=== PATIENT | female | born 1975 | race African-American/Black ===

== ENCOUNTER 2019-12-18 22:20 | Emergency (ER) | payer MEDICAID ==
[~2019-12-18] VITALS: Ht 170.2 cm; Wt 108.0 kg
[2019-12-18 23:25] LABS: Hemoglobin 11.1 g/dL (12.2-16.2); Nucleated Red Blood Cells % 0.2 %
[2019-12-18 23:27] LABS: Basophils # (auto) 0.1 10 ^3/uL (0-0.2); Basophils % (auto) 1.5 % (0.0-2.0); Eosinophils # (auto) 0.3 10 ^3/uL (0-0.8); Eosinophils % (auto) 4.2 % (0.0-7.0); Hematocrit 34.6 % (36.0-46.0); Lymphocytes # (auto) 3.2 10 ^3/uL (0.4-5.4); Lymphocytes % (auto) 41.2 % (10.0-50.0); Mean Corpuscular Hemoglobin 25.4 pg (28.0-32.0); Mean Corpuscular Hgb Conc. 32.2 g/dL (32.0-36.0); Mean Corpuscular Volume 79.1 fL (80.0-100.0); Monocytes # (auto) 0.6 10 ^3/uL (0-1.3); Monocytes % (auto) 7.9 % (0.0-12.0); Neutrophils # (auto) 3.5 10 ^3/uL (1.6-8.6); Neutrophils % (auto) 45.2 % (37.0-80.0); Platelet Count (auto) 342 10^3/uL (140-450); Red Blood Cells 4.37 10^6/uL (4.0-5.20); Red Cell Distribution Width 19.2 % (11.8-14.3); White Blood Cell 7.7 10^3/uL (4.4-10.8)
[2019-12-18 23:37] LABS: INR 0.95 (0.9-1.15); Partial Thromboplastin Time 22.6 sec (23.0-31.2)
[2019-12-18 23:42] LABS: Albumin 3.6 g/dL (3.4-5.0); Anion Gap 6 (5-15); BUN/Creatinine Ratio 9.1; Blood Urea Nitrogen 8 mg/dL (7-18); Calcium 8.5 mg/dL (8.5-10.1); Carbon Dioxide 27 mmol/L (21-32); Chloride 105 mmol/L (98-107); GFR African American 89 mL/min; GFR Non-African American 74 mL/min; Glucose 100 mg/dL (74-106); Potassium 3.5 mmol/L (3.5-5.1); Sodium 138 mmol/L (136-145)
[2019-12-18 23:51] LABS: Alanine Aminotransferase 17 U/L (13-56); Alkaline Phosphatase 136 U/L (45-117); Aspartate Aminotransferase 15 U/L (15-37); Bilirubin, Total 0.2 mg/dL (0.2-1.0); Total Protein 7.5 g/dL (6.4-8.2)
[2019-12-19] MEDS ORDERED: CLOPIDOGREL 300 MG TAB PO ONE (03:00)
[2019-12-19] MEDS ORDERED: MORPHINE SULFATE 4 MG/ML SYR/VIAL IV ONE (03:00)
[2019-12-19] MEDS ORDERED: ONDANSETRON HCL 4 MG/2 ML VIAL IV ONE (03:00)
[2019-12-19 03:46] VITALS: BP 111/75
== END 2019-12-19 05:19 | disposition home or self-care (01) ==
LOC: ER 22:23
DX: R07.89 Other chest pain (principal); M75.52 Bursitis of left shoulder
CPT/HCPCS: 36415; 71045; 80053; 83880; 84443; 84484; 85025; 85379; 85610; 85730; 93005; 96374; 96375; 99285; J2270; J2405